=== PATIENT | male | born 1960 | race African-American/Black ===

== ENCOUNTER 2019-08-11 19:19 | Inpatient (IN) | payer BC, OTHER ==
[~2019-08-11 19:19] MED LIST: LORazepam 0.5 MG TABLET PO PRN
[2019-08-11 20:22] VITALS: BMI 28.5
--- NOTE | 2019-08-11 21:19 | HP ---
CIWA Score Nausea/Vomitin Muscle Tremors: 1-None Visible, but [place] Anxiety: 0-No Anxiety, at Ease Agitation: 0-Normal Activity Paroxysmal Sweats: 3 Orientation: 2-Disoriented Date<2 days Tacttile Disturbances: 0-None Auditory Disturbances: 0-None Visual Disturbances: 0-None Headache: 2-Mild CIWA-Ar Total Score: 13 - Admission Criteria OASAS Guidelines: Admission for Medically Managed Detox: Requires at least one of the followin. CIWA greater than 12 2. Seizures within the past 24 hours 3. Delirium tremens within the past 24 hours 4. Hallucinations within the past 24 hours 5. Acute intervention needed for co occurring medical disorder 6. Acute intervention needed for co occurring psychiatric disorder 7. Severe withdrawal that cannot be handled at a lower level of care (continued vomiting, continued diarrhea, abnormal vital signs) requiring intravenous medication and/or fluids 8. Patient presents the following: CIWA greater than 12 Admission Criteria Met: Admission criteria met Admitting History and Physical - Smoking History Smoking history: Current every day smoker Have you smoked in the past 12 months: Yes Aproximately how many cigarettes per day: 10 - Alcohol/Substance Use Hx Alcohol Use: Yes (pt reports drinking alcohol daily) Admission ROS [facility] Chief Complaint: SEEKING ALCOHOL DETOX Allergies/Adverse Reactions: Allergies Allergy/AdvReac Type Severity Reaction Status Date / Time No Known Drug Allergies Allergy Unknown Verified 08/11/19 20:12 Unclassified Drug Allergy Unknown ALLERGY TO Verified 08/11/19 20:12 NOODLES History of Present Illness: HERE FOR ALCOHOL DETOX. CLIENT IS SELF REFERRED. KNOWN TO PROGRAM. LAST HERE 6 YEARS AGO. PRESENTS TODAY WITH C/O WITHDRAWAL SX'S. HE REPORT DAILY ALCOHOL USE. LAST BEING EARLIER TODAY. 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 REPORTS HX OF SEIZURES LAST EPISODE 3 MONTHS AGO AFTER HE AFTER TO REFRAIN FROM USING ALCOHOL. REPORTS LONGEST CLEAN TIME 1 YEAR. DENIES ANY CLEAN TIME THIS PAST YEAR. HOMELESS, SSD, DENIES LEGALS. Exam Limitations: No Limitations - Ebola screening Have you traveled outside of the country in the last 21 days: No (N) Have you had contact with anyone from an Ebola affected area: No Do you have a fever: No - Review of Systems Constitutional: Chills, Loss of Appetite, Changes in sleep EENT: reports: Other (RINORRHEA) Respiratory: reports: No Symptoms reported Cardiac: reports: No Symptoms Reported GI: reports: Poor Appetite, Poor Fluid Intake, Vomiting : reports: No Symptoms Reported Musculoskeletal: reports: Joint Pain (CHRONIC) Integumentary: reports: No Symptoms Reported Neuro: reports: Headache, Seizure, Tremors (FELT) Endocrine: reports: No Symptoms Reported Hematology: reports: No Symptoms Reported Psychiatric: reports: Orientated x3, Agitated (IRRITABLE), Depressed (DENIES SI) Other Systems: Reviewed and Negative Patient History - Patient Medical History Hx Anemia: No Hx Asthma: Yes Hx Chronic Obstructive Pulmonary Disease (COPD): No Hx Cancer: No Hx Cardiac Disorders: No Hx Congestive Heart Failure: No Hx Hypertension: Yes (on medication of HTN) Hx Hypercholesterolemia: No Hx Pacemaker: No HX Cerebrovascular Accident: No Hx Seizures: No Hx Dementia: No Hx Diabetes: No Hx Gastrointestinal Disorders: No Hx Liver Disease: No Hx Genitourinary Disorders: No Hx Sexually Transmitted Disorders: Yes (Patient reported treated for syphillis in the past.) Hx Renal Disease (ESRD): No Hx Thyroid Disease: No Hx Human Immunodeficiency Virus (HIV): No (05/04- [id number] NEGATIVE) Hx Hepatitis C: No Hx Depression: No Hx Suicide Attempt: No Hx Bipolar Disorder: Yes Hx Schizophrenia: No Other Medical History: DENIES - Patient Surgical History Past Surgical History: No Hx Neurologic Surgery: No Hx Cataract Extraction: No Hx Cardiac Surgery: No Hx Lung Surgery: No Hx Breast Surgery: No Hx Breast Biopsy: No Hx Abdominal Surgery: No Hx Appendectomy: No Hx Cholecystectomy: No Hx Genitourinary Surgery: No Hx Section: No Hx Orthopedic Surgery: No Other Surgical History: UMBILICAL HERNIA REPAIR 2013 Anesthesia Reaction: No - PPD History Previous Implant?: Yes Documented Results: Negative w/proof (client now reports hx/o TB exposure since last testing and was tx'ed x 6 months does not recall when he converted) Implanted On Prior [facility] Admission?: Yes Date: 07/16/13 Results: 0 mm PPD to be Administered?: No - Smoking Cessation Smoking history: Current every day smoker Have you smoked in the past 12 months: Yes Aproximately how many cigarettes per day: 10 Cigars Per Day: 0 Hx Chewing Tobacco Use: No Initiated information on smoking cessation: Yes 'Breaking Loose' booklet given: 08/11/19 - Substance & Tx. History Hx Alcohol Use: Yes Hx Substance Use: Yes Substance Use Type: Alcohol, Cocaine, Marijuana Hx Substance Use Treatment: Yes ([facility]) - Substances abused Alcohol Substance route: Oral Frequency: Daily Amount used: 3 tall cans of beers/ crazy stallion/ 1 pint of Triston /vodka. Age of first use: 17 Date of last use: 08/10/19 Crack Substance route: Smoking Frequency: 3-6 times per week Amount used: 100 to 200 dollars Age of first use: 35 Date of last use: 08/11/19 Admission Physical Exam [facility] - Vital Signs Vital Signs: Vital Signs - 24 hr 08/11/19 20:10 Temperature 98.0 F Pulse Rate 76 Respiratory 20 Rate Blood Pressure 121/78 - Physical General Appearance: Yes: Mild Distress, Tremorous (felt), Anxious HEENTM: Yes: EOMI, Normocephalic, Normal Voice, CHUY, Pharynx Normal Respiratory: Yes: Chest Non-Tender, Lungs Clear, Normal Breath Sounds, No Respiratory Distress, No Accessory Muscle Use Neck: Yes: No masses,lesions,Nodules, Supple, Trachea in good position Breast: Yes: Breasts Symetrical Cardiology: Yes: Regular Rhythm, Regular Rate, S1, S2 Abdominal: Yes: Normal Bowel Sounds, Non Tender, Soft Genitourinary: Yes: Within Normal Limits Back: Yes: Normal Inspection Musculoskeletal: Yes: full range of Motion, Gait Steady Extremities: Yes: Normal Capillary Refill, Normal Range of Motion, Non-Tender, Tremors (felt) Neurological: Yes: Fully Oriented, Alert, Motor Strength 5/5, Depressed Affect ( denies si) Integumentary: Yes: Other (cool + pilorection) Lymphatic: Yes: Within Normal Limits - Diagnostic (1) Alcohol dependence with withdrawal, uncomplicated Current Visit: Yes Status: Acute (2) Cocaine dependence, uncomplicated Current Visit: Yes Status: Acute (3) Cannabis dependence, uncomplicated Current Visit: Yes Status: Acute (4) Nicotine dependence Current Visit: Yes Status: Acute (5) Depressed affect Current Visit: Yes Status: Acute (6) Asthma Current Visit: No Status: Active (7) Essential hypertension Current Visit: No Status: Active (8) History of tuberculosis exposure Current Visit: Yes Status: Resolved Cleared for Admission [facility] - Detox or Rehab S Level of Care: Medically Managed (ATIVAN) Claeared for Rehab Admission: No Breathalyzer - Breathalyzer Breathalyzer: 0 Urine Drug Screen - Test Device Lot number: [id number] Expiration date: 03/22/21 - Control Is test valid?: Yes - Results Drug screen NEGATIVE: No Urine drug screen results: THC-Marijuana, PASHA-Cocaine Inpatient Rehab Admission - Rehab Decision to Admit Inpatient rehab admission?: No
[2019-08-11] MEDS ORDERED: P-EPHED 60MG/TRIPROLIDI 2.5MG TABLET PO PRN (21:26)
[2019-08-11] MEDS ORDERED: MAGNESIUM HYDROX 2400MG/30ML ORAL SUSPENSION 30 ML CUP PO PRN (21:26)
[2019-08-11] MEDS ORDERED: hydrOXYzine PAMOATE 25 MG CAPSULE (FP) PO PRN (21:26)
[2019-08-11] MEDS ORDERED: ALBUTEROL SO4 0.083% IH SOL 2.5 MG/3 ML VIAL.NEB. NEB PRN (21:26)
[2019-08-11] MEDS ORDERED: MENTHOL/PHENOL 1 EACH UD MM PRN (21:26)
[2019-08-11] MEDS ORDERED: NICOTINE POLACRILEX 2 MG GUM BUC PRN (21:26)
[2019-08-11] MEDS ORDERED: guaiFENesin 200 MG/10 ML 10 ML UNIT-DOSE CUPS PO PRN (21:26)
[2019-08-11] MEDS ORDERED: IBUPROFEN 400 MG TABLET (FP) PO PRN (21:26)
[2019-08-11] MEDS ORDERED: BISMUTH SUBSALICYLATE 524 MG/30 ML UD PO PRN (21:26)
[2019-08-11] MEDS ORDERED: MAG HYDROX/AL HYDROX/SIMETH 30 ML UNIT-DOSE CUP PO PRN (21:26)
[2019-08-11] MEDS ORDERED: ONDANSETRON *ODT* 4 MG TABLET SL PRN (21:26)
[2019-08-11] MEDS ORDERED: LORazepam 1 MG TABLET PO PRN (21:26)
[2019-08-11] MEDS ORDERED: METHOCARBAMOL 500 MG TABLET PO PRN (21:26)
[2019-08-11] MEDS ORDERED: DICYCLOMINE HCL 10 MG CAPSULE PO PRN (21:26)
[2019-08-11] MEDS ORDERED: ACETAMINOPHEN 325 MG TABLET (FP) PO PRN ×2 (21:26)
[2019-08-11] MEDS ORDERED: MAGNESIUM CITRATE 300 ML BOTTLE PO PRN (21:26)
[2019-08-11] MEDS: THIAMINE HCL 100 MG TABLET (FP) PO SCH (22:00)
[2019-08-11] MEDS: LORazepam 2 MG TABLET PO SCH (23:15)
[2019-08-11] MEDS: MELATONIN 5 MG TABLETS PO PRN (23:16)
[2019-08-12] MEDS: LORazepam 2 MG TABLET PO SCH ×4 (07:56→22:44)
[2019-08-12] MEDS: amLODIPine BESYLATE 10 MG TABLET (FP) PO SCH (10:16)
[2019-08-12] MEDS: PRENATAL VITAMINS W/ FOLIC ACID TABLET (FP) PO SCH (10:16)
[2019-08-12] MEDS: NICOTINE 14 MG/24 HOURS TOPICAL PATCH TD SCH (10:16)
[2019-08-12 10:31] LABS: HEMATOCRIT 38.9 % (35.4-49); HEMOGLOBIN 12.6 GM/dL (11.7-16.9); MCH 30.2 pg (25.7-33.7); MCHC 32.3 g/dl (32.0-35.9); MEAN CELL VOLUME 93.4 fl (80-96); MEAN PLT VOLUME 9.3 fl (7.5-11.1); PLATELET COUNT 234 K/MM3 (134-434); RBC 4.16 M/mm3 (4.00-5.60); RDW 14.9 % (11.9-15.9); WHITE BLOOD COUNT 4.8 K/mm3 (4.0-10.0)
--- NOTE | 2019-08-12 10:43 | EKG ---
Test Reason : Blood Pressure : / mmHG Vent. Rate : 069 BPM Atrial Rate : 069 BPM P-R Int : 134 ms QRS Dur : 106 ms QT Int : 430 ms P-R-T Axes : 059 -38 -29 degrees QTc Int : 460 ms NORMAL SINUS RHYTHM LEFT AXIS DEVIATION NONSPECIFIC T WAVE ABNORMALITY PROLONGED QT ABNORMAL ECG WHEN COMPARED WITH ECG OF 02-JAN-2012 13:06, QRS DURATION HAS INCREASED INVERTED T WAVES HAVE REPLACED NONSPECIFIC T WAVE ABNORMALITY IN INFERIOR LEADS Confirmed by FINESSE FLETCHER MD ([id number]) on 08/12/2019 10:42:59 AM Referred By: KATE JI Confirmed By:FINESSE FLETCHER MD
[2019-08-12 10:50] LABS: ALBUMIN 3.1 g/dl (3.4-5.0); BILIRUBIN,TOTAL 0.3 mg/dL (0.2-1); BLOOD UREA NITROGEN 19.1 mg/dL (7-18); CALCIUM 8.4 mg/dL (8.5-10.1); CREATININE 1.2 mg/dL (0.55-1.3); TOT PROT 5.8 g/dl (6.4-8.2)
--- NOTE | 2019-08-12 12:02 | DS ---
[facility] Detox Discharge Summary Admission Date: 08/11/19 - History Present History: Alcohol Dependence, Opioid Dependence Pertinent Past History: Pt here for alcohol detox. - Physical Exam Results Vital Signs: Vital Signs Temperature 97.5 F L 08/12/19 09:52 Pulse Rate 53 L 08/12/19 09:52 Respiratory Rate 18 08/12/19 09:52 Blood Pressure 105/64 08/12/19 09:52 O2 Sat by Pulse Oximetry (%) - Medication Discharge Medications: Ambulatory Orders Albuterol Sulfate Inhaler - [Ventolin HFA Inhaler -] 2 inh IH Q4H PRN #1 inh 11/03 Amlodipine Besylate [Norvasc -] 10 mg PO DAILY #30 tablet 07/26/13 Divalproex [Depakote -] 500 mg PO BID 08/11/19
--- NOTE | 2019-08-12 12:11 | PN ---
[facility] CIWA - CIWA Score Nausea/Vomitin Muscle Tremors: 3 Anxiety: 3 Agitation: 3 Paroxysmal Sweats: 3 Orientation: 0-Oriented Tacttile Disturbances: 0-None Auditory Disturbances: 0-None Visual Disturbances: 0-None Headache: 1-Very Mild CIWA-Ar Total Score: 15 [facility] Progress Note (SOAP) Subjective: pt here for alcohol detox. Says feeling OK O: Vital Signs - 24 hr 08/11/19 08/11/19 08/12/19 20:10 23:51 00:31 Temperature 98.0 F 96.5 F L Pulse Rate 76 83 Respiratory 20 18 18 Rate Blood Pressure 121/78 115/83 08/12/19 08/12/19 08/12/19 03:31 06:37 09:52 Temperature 97.7 F 97.5 F L Pulse Rate 51 L 53 L Respiratory 18 18 18 Rate Blood Pressure 104/59 L 105/64 Laboratory Tests 08/12/19 08/12/19 08:00 08:00 WBC 4.8 RBC 4.16 Hgb 12.6 Hct 38.9 MCV 93.4 MCH 30.2 MCHC 32.3 RDW 14.9 Plt Count 234 MPV 9.3 Sodium 142 Potassium 4.0 Chloride 107 Carbon Dioxide 29 Anion Gap 6 L BUN 19.1 H Creatinine 1.2 Est GFR (CKD-EPI)AfAm 76.25 Est GFR (CKD-EPI)NonAf 65.79 Random Glucose 77 Calcium 8.4 L Total Bilirubin 0.3 AST 29 ALT 20 Alkaline Phosphatase 66 Total Protein 5.8 L Albumin 3.1 L a/p: control librium detox- pt doing well
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
[2019-08-12] MEDS: THIAMINE HCL 100 MG TABLET (FP) PO SCH (22:44)
[2019-08-12] MEDS: DIVALPROEX SODIUM 500 MG TABLET E.C. PO SCH (22:44)
[2019-08-13] MEDS: LORazepam 1 MG TABLET PO SCH ×4 (06:16→23:13)
[2019-08-13] MEDS: DIVALPROEX SODIUM 500 MG TABLET E.C. PO SCH ×2 (10:42→23:14)
[2019-08-13] MEDS: amLODIPine BESYLATE 10 MG TABLET (FP) PO SCH (10:42)
[2019-08-13] MEDS: PRENATAL VITAMINS W/ FOLIC ACID TABLET (FP) PO SCH (10:43)
[2019-08-13] MEDS: NICOTINE 14 MG/24 HOURS TOPICAL PATCH TD SCH (10:44)
--- NOTE | 2019-08-13 11:06 | PN ---
S CIWA - CIWA Score Nausea/Vomitin-No Nausea/No Vomiting Muscle Tremors: 2 Anxiety: 3 Agitation: 0-Normal Activity Paroxysmal Sweats: 3 Orientation: 0-Oriented Tacttile Disturbances: 0-None Auditory Disturbances: 0-None Visual Disturbances: 0-None Headache: 2-Mild CIWA-Ar Total Score: 10 S Progress Note (SOAP) Subjective: c/o sweats, anxiety, and headache. Objective: 08/13/19 11:04 Vital Signs 08/13/19 08/13/19 08/13/19 03:30 06:24 06:30 Temperature 97.6 F Pulse Rate 64 Respiratory 18 18 18 Rate Blood Pressure 116/72 08/13/19 09:20 Temperature 97.4 F L Pulse Rate 67 Respiratory 18 Rate Blood Pressure 135/79 Lab Results WBC 4.8 K/mm3 (4.0-10.0) 08/12/19 08:00 RBC 4.16 M/mm3 (4.00-5.60) 08/12/19 08:00 Hgb 12.6 GM/dL (11.7-16.9) 08/12/19 08:00 Hct 38.9 % (35.4-49) 08/12/19 08:00 MCV 93.4 fl (80-96) 08/12/19 08:00 MCHC 32.3 g/dl (32.0-35.9) 08/12/19 08:00 RDW 14.9 % (11.9-15.9) 08/12/19 08:00 Plt Count 234 K/MM3 (134-434) 08/12/19 08:00 Sodium 142 mmol/L (136-145) 08/12/19 08:00 Potassium 4.0 mmol/L (3.5-5.1) 08/12/19 08:00 Chloride 107 mmol/L (98-107) 08/12/19 08:00 Carbon Dioxide 29 mmol/L (21-32) 08/12/19 08:00 Anion Gap 6 MMOL/L (8-16) L 08/12/19 08:00 BUN 19.1 mg/dL (7-18) H 08/12/19 08:00 Creatinine 1.2 mg/dL (0.55-1.3) 08/12/19 08:00 Random Glucose 77 mg/dL (74-106) 08/12/19 08:00 Calcium 8.4 mg/dL (8.5-10.1) L 08/12/19 08:00 Labs noted. Assessment: 08/13/19 11:05 AOX3, in no respiratory distress. Full ROM, ambulating in the unit. Withdrawal symptoms. Plan: continue detox.
--- NOTE | 2019-08-13 14:38 | EKG ---
Test Reason : Blood Pressure : / mmHG Vent. Rate : 060 BPM Atrial Rate : 060 BPM P-R Int : 134 ms QRS Dur : 110 ms QT Int : 486 ms P-R-T Axes : 063 -34 -38 degrees QTc Int : 486 ms NORMAL SINUS RHYTHM LEFT AXIS DEVIATION POSSIBLE LATERAL INFARCT , AGE UNDETERMINED T WAVE ABNORMALITY, CONSIDER INFERIOR ISCHEMIA T WAVE ABNORMALITY, CONSIDER ANTERIOR ISCHEMIA ABNORMAL ECG WHEN COMPARED WITH ECG OF 02-JAN-2012 13:06, T WAVE ABNORMALITIES NOW PRESENT Confirmed by ROCK TOLEDO MD ([id number]) on 08/13/2019 2:37:55 PM Referred By: Confirmed By:ROCK TOLEDO MD
[2019-08-13] MEDS: MELATONIN 5 MG TABLETS PO PRN (23:14)
[2019-08-13] MEDS: THIAMINE HCL 100 MG TABLET (FP) PO SCH (23:14)
[2019-08-14] MEDS: LORazepam 0.5 MG TABLET PO SCH ×4 (05:43→22:28)
[2019-08-14] MEDS: amLODIPine BESYLATE 10 MG TABLET (FP) PO SCH (10:50)
[2019-08-14] MEDS: PRENATAL VITAMINS W/ FOLIC ACID TABLET (FP) PO SCH (10:50)
[2019-08-14] MEDS: DIVALPROEX SODIUM 500 MG TABLET E.C. PO SCH ×2 (10:50→22:28)
[2019-08-14] MEDS: NICOTINE 14 MG/24 HOURS TOPICAL PATCH TD SCH (10:51)
--- NOTE | 2019-08-14 11:00 | PN ---
[facility] CIWA - CIWA Score Nausea/Vomitin-No Nausea/No Vomiting Muscle Tremors: 1-None Visible, but [place] Anxiety: 2 Agitation: 1-Slight > Activity Paroxysmal Sweats: 1-Minimal [place] Moist Orientation: 0-Oriented Tacttile Disturbances: 0-None Auditory Disturbances: 0-None Visual Disturbances: 0-None Headache: 0-None Present CIWA-Ar Total Score: 5 [facility] Progress Note (SOAP) Subjective: 59 years old male admitted on 08/11/19 for alcohol withdrawal sx management treating with ativan detox regimen feeling better today resting on bed comfortably encourage the patient to attend groups and meetings Objective: 08/14/19 11:00 Vital Signs Temperature 96.6 F L 08/14/19 09:09 Pulse Rate 66 08/14/19 09:09 Respiratory Rate 18 08/14/19 09:09 Blood Pressure 132/89 08/14/19 09:09 O2 Sat by Pulse Oximetry (%) Laboratory Last Values WBC 4.8 K/mm3 (4.0-10.0) 08/12/19 08:00 RBC 4.16 M/mm3 (4.00-5.60) 08/12/19 08:00 Hgb 12.6 GM/dL (11.7-16.9) 08/12/19 08:00 Hct 38.9 % (35.4-49) 08/12/19 08:00 MCV 93.4 fl (80-96) 08/12/19 08:00 MCH 30.2 pg (25.7-33.7) 08/12/19 08:00 MCHC 32.3 g/dl (32.0-35.9) 08/12/19 08:00 RDW 14.9 % (11.9-15.9) 08/12/19 08:00 Plt Count 234 K/MM3 (134-434) 08/12/19 08:00 MPV 9.3 fl (7.5-11.1) 08/12/19 08:00 Sodium 142 mmol/L (136-145) 08/12/19 08:00 Potassium 4.0 mmol/L (3.5-5.1) 08/12/19 08:00 Chloride 107 mmol/L (98-107) 08/12/19 08:00 Carbon Dioxide 29 mmol/L (21-32) 08/12/19 08:00 Anion Gap 6 MMOL/L (8-16) L 08/12/19 08:00 BUN 19.1 mg/dL (7-18) H 08/12/19 08:00 Creatinine 1.2 mg/dL (0.55-1.3) 08/12/19 08:00 Est GFR (CKD-EPI)AfAm 76.25 08/12/19 08:00 Est GFR (CKD-EPI)NonAf 65.79 08/12/19 08:00 Random Glucose 77 mg/dL (74-106) 08/12/19 08:00 Calcium 8.4 mg/dL (8.5-10.1) L 08/12/19 08:00 Total Bilirubin 0.3 mg/dL (0.2-1) 08/12/19 08:00 AST 29 U/L (15-37) 08/12/19 08:00 ALT 20 U/L (13-61) 08/12/19 08:00 Alkaline Phosphatase 66 U/L (45-117) 08/12/19 08:00 Total Protein 5.8 g/dl (6.4-8.2) L 08/12/19 08:00 Albumin 3.1 g/dl (3.4-5.0) L 08/12/19 08:00 Valproic Acid 4.2 ug/mL (50-100) L 08/13/19 05:50 RPR Titer Nonreactive (NONREACTIVE) 08/12/19 08:00 lab noted Assessment: 08/14/19 11:00 alcohol withdrawal Plan: ativan regimen
[2019-08-14] MEDS: MELATONIN 5 MG TABLETS PO PRN (22:28)
[2019-08-14] MEDS: THIAMINE HCL 100 MG TABLET (FP) PO SCH (22:28)
[2019-08-15] MEDS ORDERED: LORazepam 0.5 MG TABLET PO ONE (05:00)
[2019-08-15 09:26] VITALS: BP 131/87; PULSE 98; TEMP 97
[2019-08-15] MEDS: DIVALPROEX SODIUM 500 MG TABLET E.C. PO SCH (09:34)
[2019-08-15] MEDS: PRENATAL VITAMINS W/ FOLIC ACID TABLET (FP) PO SCH (09:34)
[2019-08-15] MEDS: amLODIPine BESYLATE 10 MG TABLET (FP) PO SCH (09:34)
[2019-08-15] MEDS: NICOTINE 14 MG/24 HOURS TOPICAL PATCH TD SCH (09:35)
--- NOTE | 2019-08-15 12:37 | DS ---
[facility] Detox Discharge Summary Admission Date: 08/11/19 Discharge Date: 08/15/19 - History Present History: Alcohol Dependence Additional Comments: 59 years old male admitted on 08/11/19 for alcohol withdrawal sx management treated with ativan detox regimen patient tolerated well alert oriented x 3 cardiac s1s2 regular rate rhythm respiratory clear lung bilaterally on auscultation skin warm and dry - Physical Exam Results Vital Signs: Vital Signs Temperature 97.0 F L 08/15/19 09:25 Pulse Rate 98 H 08/15/19 09:25 Respiratory Rate 20 08/15/19 09:25 Blood Pressure 131/87 08/15/19 09:25 O2 Sat by Pulse Oximetry (%) Pertinent Admission Physical Exam Findings: alcohol withdrawal x Laboratory Last Values WBC 4.8 K/mm3 (4.0-10.0) 08/12/19 08:00 RBC 4.16 M/mm3 (4.00-5.60) 08/12/19 08:00 Hgb 12.6 GM/dL (11.7-16.9) 08/12/19 08:00 Hct 38.9 % (35.4-49) 08/12/19 08:00 MCV 93.4 fl (80-96) 08/12/19 08:00 MCH 30.2 pg (25.7-33.7) 08/12/19 08:00 MCHC 32.3 g/dl (32.0-35.9) 08/12/19 08:00 RDW 14.9 % (11.9-15.9) 08/12/19 08:00 Plt Count 234 K/MM3 (134-434) 08/12/19 08:00 MPV 9.3 fl (7.5-11.1) 08/12/19 08:00 Sodium 142 mmol/L (136-145) 08/12/19 08:00 Potassium 4.0 mmol/L (3.5-5.1) 08/12/19 08:00 Chloride 107 mmol/L (98-107) 08/12/19 08:00 Carbon Dioxide 29 mmol/L (21-32) 08/12/19 08:00 Anion Gap 6 MMOL/L (8-16) L 08/12/19 08:00 BUN 19.1 mg/dL (7-18) H 08/12/19 08:00 Creatinine 1.2 mg/dL (0.55-1.3) 08/12/19 08:00 Est GFR (CKD-EPI)AfAm 76.25 08/12/19 08:00 Est GFR (CKD-EPI)NonAf 65.79 08/12/19 08:00 Random Glucose 77 mg/dL (74-106) 08/12/19 08:00 Calcium 8.4 mg/dL (8.5-10.1) L 08/12/19 08:00 Total Bilirubin 0.3 mg/dL (0.2-1) 08/12/19 08:00 AST 29 U/L (15-37) 08/12/19 08:00 ALT 20 U/L (13-61) 08/12/19 08:00 Alkaline Phosphatase 66 U/L (45-117) 08/12/19 08:00 Total Protein 5.8 g/dl (6.4-8.2) L 08/12/19 08:00 Albumin 3.1 g/dl (3.4-5.0) L 08/12/19 08:00 Valproic Acid 4.2 ug/mL (50-100) L 08/13/19 05:50 RPR Titer Nonreactive (NONREACTIVE) 08/12/19 08:00 lab noted - Treatment Hospital Course: Detox Protocol Followed, Detoxed Safely, Responded well, Discharged Condition Good, Rehab Referral Accepted Patient [facility] - Medication Discharge Medications: Ambulatory Orders Albuterol Sulfate Inhaler - [Ventolin HFA Inhaler -] 2 inh IH Q4H PRN #1 inh 11/03 Amlodipine Besylate [Norvasc -] 10 mg PO DAILY #30 tablet 07/26/13 Divalproex [Depakote -] 500 mg PO BID 08/11/19 - Diagnosis (1) Asthma Status: Chronic (2) Essential hypertension Status: Chronic (3) Alcohol dependence with withdrawal, uncomplicated Status: Acute (4) Nicotine dependence Status: Acute Qualifiers: Nicotine product type: cigarettes Substance use status: in withdrawal Qualified Code(s): F17.213 - Nicotine dependence, cigarettes, with withdrawal (5) Substance induced mood disorder Status: Suspected - AMA Did Patient Leave Against Medical Advice: No CIWA Score - CIWA Score Nausea/Vomitin-No Nausea/No Vomiting Muscle Tremors: 1-None Visible, but [place] Anxiety: 1-Mildly Anxious Agitation: 0-Normal Activity Paroxysmal Sweats: No Perspiration Orientation: 0-Oriented Tacttile Disturbances: 0-None Auditory Disturbances: 0-None Visual Disturbances: 0-None Headache: 0-None Present CIWA-Ar Total Score: 2
== END 2019-08-15 11:00 | disposition other institution (70) | DRG 897 ==
LOC: YASAS 19:19 → Y3N 21:52
PROVIDERS: ADMIT Allergy & Immunology; ATTEND Allergy & Immunology
PROC: HZ2ZZZZ Detoxification Services for Substance Abuse Treatment (ICD-10-PCS; principal; 2019-08-11)
DX: F10.230 Alcohol dependence with withdrawal, uncomplicated (principal); F14.20 Cocaine dependence, uncomplicated; F12.20 Cannabis dependence, uncomplicated; F17.213 Nicotine dependence, cigarettes, with withdrawal; F19.24 Other psychoactive substance dependence with psychoactive substance-induced mood disorder; F32.9 Major depressive disorder, single episode, unspecified; I10 Essential (primary) hypertension; J45.909 Unspecified asthma, uncomplicated; Z91.018 Allergy to other foods; Z62.810 Personal history of physical and sexual abuse in childhood; Z87.438 Personal history of other diseases of male genital organs; Z86.11 Personal history of tuberculosis; Z91.19 Patient's noncompliance with other medical treatment and regimen; Z59.0 Homelessness
CPT/HCPCS: 36415; 71046-TC-FY; 80053; 80164; 85027; 86593; 93005; 93010

== ENCOUNTER 2019-08-15 11:06 | Inpatient (IN) | payer BC, OTHER ==
[2019-08-15] MEDS ORDERED: guaiFENesin 200 MG/10 ML 10 ML UNIT-DOSE CUPS PO PRN (12:43)
[2019-08-15] MEDS ORDERED: MAGNESIUM CITRATE 300 ML BOTTLE PO PRN (12:43)
[2019-08-15] MEDS ORDERED: IBUPROFEN 400 MG TABLET (FP) PO PRN (12:43)
[2019-08-15] MEDS ORDERED: P-EPHED 60MG/TRIPROLIDI 2.5MG TABLET PO PRN (12:43)
[2019-08-15] MEDS ORDERED: ACETAMINOPHEN 325 MG TABLET (FP) PO PRN (12:43)
[2019-08-15] MEDS ORDERED: MAG HYDROX/AL HYDROX/SIMETH 30 ML UNIT-DOSE CUP PO PRN (12:43)
[2019-08-15] MEDS ORDERED: MENTHOL/PHENOL 1 EACH UD MM PRN (12:43)
[2019-08-15] MEDS ORDERED: LOPERAMIDE HCL 2 MG CAPSULE PO PRN (12:43)
[2019-08-15] MEDS ORDERED: MAGNESIUM HYDROX 2400MG/30ML ORAL SUSPENSION 30 ML CUP PO PRN (12:43)
[2019-08-15] MEDS ORDERED: NICOTINE POLACRILEX 2 MG GUM BUC PRN (12:43)
--- NOTE | 2019-08-15 12:43 | HP ---
[facility] Rehab Assess/Revision - Admission History Admitted to Rehab from: [facility] Date of Admission to Rehab: 08/15/19 - Vital signs Vital Signs: Vital Signs Period Temp Pulse Resp BP Sys/Denise Pulse Ox Last 24 Hr 97.9 F 86 18 117/91 - Findings Detox History & Physical reviewed: Yes Concur with findings: Yes Comments/Additional Findings: transferred from detox to rehab admission as per protocol Inpatient Rehab Admission - Rehab Decision to Admit Inpatient rehab admission?: Yes - Initial Determination Are CD services needed?: Yes Free of communicable disease: Yes Not in need of hospitalization: Yes - Rehab Admission Criteria Previous failed treatment: Yes Poor recovery environment: Yes Comorbidities: Yes Lacks judgement: Yes Patient is meeting Inpatient Rehab admission criteria:: Yes
[2019-08-15] MEDS ORDERED: ALBUTEROL SO4 8 GM HFA INHALER IH PRN (12:45)
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
[2019-08-15] MEDS: COLLOIDAL OATMEAL 1 BAR EACH TP PRN (18:17)
[2019-08-15] MEDS: MELATONIN 5 MG TABLETS PO PRN (21:11)
[2019-08-15] MEDS: THIAMINE HCL 100 MG TABLET (FP) PO SCH (21:11)
[2019-08-15] MEDS: DIVALPROEX SODIUM 500 MG TABLET E.C. PO SCH (21:12)
[2019-08-16] MEDS: amLODIPine BESYLATE 10 MG TABLET (FP) PO SCH (09:26)
[2019-08-16] MEDS: PRENATAL VITAMINS W/ FOLIC ACID TABLET (FP) PO SCH (09:26)
[2019-08-16] MEDS: DIVALPROEX SODIUM 500 MG TABLET E.C. PO SCH ×2 (09:26→21:02)
[2019-08-16] MEDS: NICOTINE 14 MG/24 HOURS TOPICAL PATCH TD SCH (09:27)
[2019-08-16] MEDS: THIAMINE HCL 100 MG TABLET (FP) PO SCH (21:02)
[2019-08-16] MEDS: MELATONIN 5 MG TABLETS PO PRN (21:02)
[2019-08-17] MEDS: amLODIPine BESYLATE 10 MG TABLET (FP) PO SCH (09:56)
[2019-08-17] MEDS: DIVALPROEX SODIUM 500 MG TABLET E.C. PO SCH ×2 (09:56→21:24)
[2019-08-17] MEDS: NICOTINE 14 MG/24 HOURS TOPICAL PATCH TD SCH (09:56)
[2019-08-17] MEDS: PRENATAL VITAMINS W/ FOLIC ACID TABLET (FP) PO SCH (09:56)
[2019-08-17] MEDS: MELATONIN 5 MG TABLETS PO PRN (21:24)
[2019-08-17] MEDS: THIAMINE HCL 100 MG TABLET (FP) PO SCH (21:24)
[2019-08-18] MEDS: amLODIPine BESYLATE 10 MG TABLET (FP) PO SCH (09:28)
[2019-08-18] MEDS: DIVALPROEX SODIUM 500 MG TABLET E.C. PO SCH ×2 (09:28→21:28)
[2019-08-18] MEDS: PRENATAL VITAMINS W/ FOLIC ACID TABLET (FP) PO SCH (09:28)
[2019-08-18] MEDS: NICOTINE 14 MG/24 HOURS TOPICAL PATCH TD SCH (09:28)
[2019-08-18] MEDS: THIAMINE HCL 100 MG TABLET (FP) PO SCH (21:28)
[2019-08-18] MEDS: MELATONIN 5 MG TABLETS PO PRN (21:28)
[2019-08-19] MEDS: amLODIPine BESYLATE 10 MG TABLET (FP) PO SCH (10:04)
[2019-08-19] MEDS: PRENATAL VITAMINS W/ FOLIC ACID TABLET (FP) PO SCH (10:04)
[2019-08-19] MEDS: DIVALPROEX SODIUM 500 MG TABLET E.C. PO SCH ×2 (10:04→21:26)
[2019-08-19] MEDS: NICOTINE 14 MG/24 HOURS TOPICAL PATCH TD SCH (10:05)
[2019-08-19] MEDS: THIAMINE HCL 100 MG TABLET (FP) PO SCH (21:26)
[2019-08-20] MEDS: NICOTINE 14 MG/24 HOURS TOPICAL PATCH TD SCH (09:39)
[2019-08-20] MEDS: amLODIPine BESYLATE 10 MG TABLET (FP) PO SCH (09:39)
[2019-08-20] MEDS: DIVALPROEX SODIUM 500 MG TABLET E.C. PO SCH ×2 (09:40→21:06)
[2019-08-20] MEDS: PRENATAL VITAMINS W/ FOLIC ACID TABLET (FP) PO SCH (09:40)
[2019-08-20] MEDS: MELATONIN 5 MG TABLETS PO PRN (21:06)
[2019-08-20] MEDS: THIAMINE HCL 100 MG TABLET (FP) PO SCH (21:06)
[2019-08-21] MEDS: PRENATAL VITAMINS W/ FOLIC ACID TABLET (FP) PO SCH (09:30)
[2019-08-21] MEDS: amLODIPine BESYLATE 10 MG TABLET (FP) PO SCH (09:30)
[2019-08-21] MEDS: NICOTINE 14 MG/24 HOURS TOPICAL PATCH TD SCH (09:30)
[2019-08-21] MEDS: DIVALPROEX SODIUM 500 MG TABLET E.C. PO SCH ×2 (09:30→21:41)
[2019-08-21] MEDS: MELATONIN 5 MG TABLETS PO PRN (21:41)
[2019-08-21] MEDS: THIAMINE HCL 100 MG TABLET (FP) PO SCH (21:41)
[2019-08-22] MEDS: COLLOIDAL OATMEAL 1 BAR EACH TP PRN (07:08)
[2019-08-22] MEDS: PRENATAL VITAMINS W/ FOLIC ACID TABLET (FP) PO SCH (09:33)
[2019-08-22] MEDS: amLODIPine BESYLATE 10 MG TABLET (FP) PO SCH (09:33)
[2019-08-22] MEDS: DIVALPROEX SODIUM 500 MG TABLET E.C. PO SCH ×2 (09:33→21:39)
[2019-08-22] MEDS: NICOTINE 14 MG/24 HOURS TOPICAL PATCH TD SCH (09:34)
[2019-08-22] MEDS: THIAMINE HCL 100 MG TABLET (FP) PO SCH (21:39)
[2019-08-22] MEDS: MELATONIN 5 MG TABLETS PO PRN (21:39)
[2019-08-23] MEDS: NICOTINE 14 MG/24 HOURS TOPICAL PATCH TD SCH (09:41)
[2019-08-23] MEDS: amLODIPine BESYLATE 10 MG TABLET (FP) PO SCH (09:41)
[2019-08-23] MEDS: DIVALPROEX SODIUM 500 MG TABLET E.C. PO SCH ×2 (09:41→21:32)
[2019-08-23] MEDS: PRENATAL VITAMINS W/ FOLIC ACID TABLET (FP) PO SCH (09:41)
[2019-08-23] MEDS: THIAMINE HCL 100 MG TABLET (FP) PO SCH (21:32)
[2019-08-23] MEDS: MELATONIN 5 MG TABLETS PO PRN (21:32)
[2019-08-24] MEDS: amLODIPine BESYLATE 10 MG TABLET (FP) PO SCH (09:36)
[2019-08-24] MEDS: NICOTINE 14 MG/24 HOURS TOPICAL PATCH TD SCH (09:36)
[2019-08-24] MEDS: PRENATAL VITAMINS W/ FOLIC ACID TABLET (FP) PO SCH (09:36)
[2019-08-24] MEDS: DIVALPROEX SODIUM 500 MG TABLET E.C. PO SCH ×2 (09:36→22:02)
--- NOTE | 2019-08-24 17:44 | PN ---
[facility] Progress Note Note: PATIENT ADMITTED TO REHAB FOR ETOH DEPENDENCE. LAST ADMISSION 6 YEARS AGO. HAS HX OF SEIZURES AND BINGE DRINKING. HOMELESS, SSD, DENIES LEGALS. Laboratory Tests 08/16/19 07:00 Valproic Acid 70.5 Vital Signs (72 hours) 08/22/19 08/22/19 08/22/19 00:30 03:30 06:09 Temperature 97.9 F Pulse Rate 67 Respiratory 18 18 20 Rate Blood Pressure 136/97 08/22/19 08/23/19 08/23/19 09:30 00:30 03:30 Temperature Pulse Rate 81 Respiratory 18 18 18 Rate Blood Pressure 138/74 08/23/19 08/23/19 08/24/19 06:44 09:22 00:30 Temperature 97.9 F Pulse Rate 76 86 Respiratory 18 18 Rate Blood Pressure 124/77 123/79 08/24/19 08/24/19 08/24/19 03:30 06:45 09:26 Temperature 97.8 F Pulse Rate 58 L 73 Respiratory 18 18 Rate Blood Pressure 131/92 128/85 REHAB SERVICES CONTINUED.
[2019-08-24] MEDS: THIAMINE HCL 100 MG TABLET (FP) PO SCH (22:02)
[2019-08-25 07:18] VITALS: TEMP 97.7
--- NOTE | 2019-08-25 08:34 | DS ---
[facility] Rehab Discharge Summary - [facility] Rehab Discharge Summary Admission Date: 08/15/19 Discharge Date: 08/25/19 - History Present History: Alcohol dependence, Cocaine dependence Pertinent Past History: Pt was admitted for alcohol and cocaine use disorders. Came in for detox about 2 weeks ago- completed detox then admitted to rehab. Pt has been here for about 10 days. Pt states doing well- says his stay here was good. Will f/u with MH- on [address] [facility] - [facility] [address] Use disorders- pt will go for f/u on [address]- outpt services PE- grossly nl Vital Signs - 24 hr 08/24/19 08/25/19 08/25/19 09:26 00:30 06:17 Temperature 97.7 F Pulse Rate 73 65 Respiratory 18 20 Rate Blood Pressure 128/85 125/85 Laboratory Tests 08/16/19 07:00 Valproic Acid 70.5 a/p: Use disorders- pt states will f/u with outpt program- pt does not know name and has and medical providers pt states needs only Norvasc and vitamins. Pt states will get depakote from his provider- on [address] - Discharge Physical Exam Vital Signs: Vital Signs Temperature 97.7 F 08/25/19 06:17 Pulse Rate 65 08/25/19 06:17 Respiratory Rate 20 08/25/19 06:17 Blood Pressure 125/85 08/25/19 06:17 O2 Sat by Pulse Oximetry (%) - Treatment Discharge Condition: Discharge condition good - Medication Discharge Medications: Ambulatory Orders Albuterol Sulfate Inhaler - [Ventolin HFA Inhaler -] 2 inh IH Q4H PRN #1 inh 11/03 Divalproex [Depakote -] 500 mg PO BID 08/11/19 Amlodipine Besylate [Norvasc -] 10 mg PO DAILY #30 tablet 08/25/19 Vitamins (Sjr) - 1 tab PO DAILY #30 tablet 08/25/19 Thiamine HCl [Vitamin B1 -] 100 mg PO HS #30 tablet 08/25/19 - Discharge Instructions Diet, activity, other medical instructions: Diet: Activity: Other medical instructions: - Follow-up Referral Minutes to complete discharge: 30 - AMA Did Patient Leave Against Medical Advice: No
[2019-08-25 09:48] VITALS: BP 126/85; PULSE 72
== END 2019-08-25 10:23 | disposition home or self-care (01) | DRG 895 ==
LOC: YASAS 11:06 → Y3W 11:09
PROVIDERS: ADMIT Neuromusculoskeletal Medicine & OMM; ATTEND Neuromusculoskeletal Medicine & OMM
PROC: HZ42ZZZ Group Counseling for Substance Abuse Treatment, Cognitive-Behavioral (ICD-10-PCS; principal; 2019-08-15)
DX: F14.20 Cocaine dependence, uncomplicated (principal); F17.213 Nicotine dependence, cigarettes, with withdrawal; F12.20 Cannabis dependence, uncomplicated; I10 Essential (primary) hypertension; J45.909 Unspecified asthma, uncomplicated; Z86.11 Personal history of tuberculosis; Z87.438 Personal history of other diseases of male genital organs; Z59.0 Homelessness
CPT/HCPCS: 80164

== ENCOUNTER 2023-03-30 13:50 | Inpatient (IN) | payer OTHER ==
[2023-03-30 14:28] VITALS: BMI 31.4
[2023-03-30] MEDS ORDERED: hydrOXYzine PAMOATE 25 MG CAPSULE (FP) PO PRN (19:16)
[2023-03-30] MEDS ORDERED: DICYCLOMINE HCL 10 MG CAPSULE PO PRN (19:16)
[2023-03-30] MEDS ORDERED: ACETAMINOPHEN 325 MG TABLET (FP) PO PRN (19:16)
[2023-03-30] MEDS ORDERED: NALOXONE HCL 0.4 MG/ML VIAL IM PRN (19:16)
[2023-03-30] MEDS ORDERED: NALOXONE HCL (KLOXXADO) 8 MG SPRAY NS PRN (19:16)
[2023-03-30] MEDS ORDERED: chlordiazePOXIDE HCL 25 MG CAPSULE PO PRN (19:16)
[2023-03-30] MEDS ORDERED: BISMUTH SUBSALICYLATE 524 MG/30 ML PO PRN (19:16)
[2023-03-30] MEDS ORDERED: LOPERAMIDE HCL 2 MG CAPSULE PO PRN (19:16)
[2023-03-30] MEDS ORDERED: POLYETHYLENE GLYCOL (HEALTHYLAX) 3350 17 GM PACKET PO PRN (19:16)
[2023-03-30] MEDS ORDERED: IBUPROFEN 600 MG TABLET (FP) PO PRN (19:16)
[2023-03-30] MEDS ORDERED: BENZOCAINE/MENTHOL (CHLORASEPTIC ) LOZENGE MM PRN (19:16)
[2023-03-30] MEDS ORDERED: BENZONATATE 200 MG CAPSULE PO PRN (19:16)
[2023-03-30] MEDS ORDERED: IBUPROFEN 400 MG TABLET (FP) PO PRN (19:16)
[2023-03-30] MEDS ORDERED: ONDANSETRON *ODT* 4 MG TABLET SL PRN (19:16)
[2023-03-30] MEDS ORDERED: MAG HYDROX/AL HYDROX/SIMETH 30 ML UNIT-DOSE CUP PO PRN (19:16)
[2023-03-30] MEDS ORDERED: MAGNESIUM HYDROX 2400MG/30ML ORAL SUSPENSION 30 ML CUP PO PRN (19:16)
[2023-03-30] MEDS ORDERED: guaiFENesin 600 MG TABLET.ER (FP) PO PRN (19:16)
[2023-03-30] MEDS ORDERED: ALBUTEROL SO4 HFA INHALER IH PRN (20:03)
[2023-03-30] MEDS: MELATONIN 5 MG TABLETS PO SCH (21:27)
[2023-03-30] MEDS: THIAMINE HCL 100 MG TABLET (FP) PO SCH (21:27)
[2023-03-30] MEDS: DIVALPROEX SODIUM 500 MG TABLET E.C. PO SCH (21:27)
[2023-03-30] MEDS: chlordiazePOXIDE HCL 25 MG CAPSULE PO SCH (22:39)
[2023-03-31] MEDS: chlordiazePOXIDE HCL 25 MG CAPSULE PO SCH ×4 (05:05→22:50)
[2023-03-31 10:24] LABS: HEMATOCRIT 41.6 % (35.4-49); HEMOGLOBIN 13.9 GM/dL (11.7-16.9); MCH 30.7 pg (25.7-33.7); MCHC 33.3 g/dl (32.0-35.9); MEAN CELL VOLUME 92.2 fl (80-96); MEAN PLT VOLUME 9.1 fl (7.5-11.1); PLATELET COUNT 263 10^3/uL (134-434); RBC 4.52 M/mm3 (4.00-5.60); RDW 14.2 % (11.9-15.9); WHITE BLOOD COUNT 5.6 K/mm3 (4.0-10.0)
[2023-03-31 10:28] LABS: POTASSIUM 4.1 mmol/L (3.5-5.1)
[2023-03-31 10:35] LABS: CREATININE 1.2 mg/dL (0.55-1.3)
[2023-03-31 10:37] LABS: BILIRUBIN,TOTAL 0.2 mg/dL (0.2-1); TOT PROT 6.4 g/dl (6.4-8.2)
[2023-03-31 10:38] LABS: ALBUMIN 3.4 g/dl (3.4-5.0); BLOOD UREA NITROGEN 15.5 mg/dL (7-18)
[2023-03-31] MEDS: PRENATAL VITAMINS W/ FOLIC ACID TABLET (FP) PO SCH (10:38)
[2023-03-31] MEDS: DIVALPROEX SODIUM 500 MG TABLET E.C. PO SCH ×2 (10:38→22:49)
[2023-03-31] MEDS: amLODIPine BESYLATE 10 MG TABLET (FP) PO SCH (10:39)
[2023-03-31] MEDS: THIAMINE HCL 100 MG TABLET (FP) PO SCH (22:49)
[2023-03-31] MEDS: MELATONIN 5 MG TABLETS PO SCH (22:52)
[2023-04-01] MEDS: chlordiazePOXIDE HCL 25 MG CAPSULE PO SCH ×4 (05:42→22:31)
[2023-04-01] MEDS: METHOCARBAMOL 500 MG TABLET PO PRN (10:52)
[2023-04-01] MEDS: amLODIPine BESYLATE 10 MG TABLET (FP) PO SCH (10:52)
[2023-04-01] MEDS: PRENATAL VITAMINS W/ FOLIC ACID TABLET (FP) PO SCH (10:52)
[2023-04-01] MEDS: DIVALPROEX SODIUM 500 MG TABLET E.C. PO SCH ×2 (10:52→22:31)
[2023-04-01] MEDS: THIAMINE HCL 100 MG TABLET (FP) PO SCH (22:31)
[2023-04-01] MEDS: MELATONIN 5 MG TABLETS PO SCH (22:32)
[2023-04-02] MEDS ORDERED: chlordiazePOXIDE HCL 10 MG CAPSULE PO PRN
[2023-04-02] MEDS: chlordiazePOXIDE HCL 10 MG CAPSULE PO SCH ×4 (05:27→23:38)
[2023-04-02] MEDS: PRENATAL VITAMINS W/ FOLIC ACID TABLET (FP) PO SCH (10:33)
[2023-04-02] MEDS: DIVALPROEX SODIUM 500 MG TABLET E.C. PO SCH ×2 (10:34→23:38)
[2023-04-02] MEDS: METHOCARBAMOL 500 MG TABLET PO PRN (10:34)
[2023-04-02] MEDS: amLODIPine BESYLATE 10 MG TABLET (FP) PO SCH (10:34)
[2023-04-02] MEDS: MELATONIN 5 MG TABLETS PO SCH (23:38)
[2023-04-02] MEDS: THIAMINE HCL 100 MG TABLET (FP) PO SCH (23:39)
[2023-04-03] MEDS: chlordiazePOXIDE HCL 10 MG CAPSULE PO SCH ×2 (05:26→17:53)
[2023-04-03] MEDS: PRENATAL VITAMINS W/ FOLIC ACID TABLET (FP) PO SCH (11:18)
[2023-04-03] MEDS: amLODIPine BESYLATE 10 MG TABLET (FP) PO SCH (11:18)
[2023-04-03] MEDS: DIVALPROEX SODIUM 500 MG TABLET E.C. PO SCH ×2 (11:18→22:56)
[2023-04-03] MEDS: THIAMINE HCL 100 MG TABLET (FP) PO SCH (22:56)
[2023-04-03] MEDS: METHOCARBAMOL 500 MG TABLET PO PRN (22:56)
[2023-04-03] MEDS: MELATONIN 5 MG TABLETS PO SCH (22:56)
[2023-04-04] MEDS ORDERED: chlordiazePOXIDE HCL 10 MG CAPSULE PO ONE (05:00)
[2023-04-04 09:34] VITALS: BP 146/105; PULSE 74; RESP 17; TEMP 97.8
[2023-04-04] MEDS: DIVALPROEX SODIUM 500 MG TABLET E.C. PO SCH (10:29)
[2023-04-04] MEDS: PRENATAL VITAMINS W/ FOLIC ACID TABLET (FP) PO SCH (10:29)
[2023-04-04] MEDS: amLODIPine BESYLATE 10 MG TABLET (FP) PO SCH (10:29)
== END 2023-04-04 12:33 | disposition other institution (70) | DRG 897 ==
LOC: YASAS 13:50 → Y6N 19:21
PROVIDERS: ADMIT Allergy & Immunology; ATTEND Allergy & Immunology
PROC: HZ2ZZZZ Detoxification Services for Substance Abuse Treatment (ICD-10-PCS; principal; 2023-03-30)
DX: F10.230 Alcohol dependence with withdrawal, uncomplicated (principal); F14.20 Cocaine dependence, uncomplicated; F19.282 Other psychoactive substance dependence with psychoactive substance-induced sleep disorder; F17.213 Nicotine dependence, cigarettes, with withdrawal; F31.9 Bipolar disorder, unspecified; F19.24 Other psychoactive substance dependence with psychoactive substance-induced mood disorder; I10 Essential (primary) hypertension; J45.909 Unspecified asthma, uncomplicated; M54.50 Low back pain, unspecified; G89.29 Other chronic pain; Z62.810 Personal history of physical and sexual abuse in childhood; Z86.11 Personal history of tuberculosis; Z86.19 Personal history of other infectious and parasitic diseases; Z86.69 Personal history of other diseases of the nervous system and sense organs; Z91.199 Patient's noncompliance with other medical treatment and regimen due to unspecified reason
CPT/HCPCS: 36415; 71046-TC-FY; 80053; 85027; 86780; 87635

== ENCOUNTER 2023-04-04 12:31 | Inpatient (IN) | payer OTHER ==
[2023-04-04] MEDS ORDERED: MAG HYDROX/AL HYDROX/SIMETH 30 ML UNIT-DOSE CUP PO PRN (14:49)
[2023-04-04] MEDS ORDERED: MAGNESIUM HYDROX 2400MG/30ML ORAL SUSPENSION 30 ML CUP PO PRN (14:49)
[2023-04-04] MEDS ORDERED: NICOTINE 14 MG/24 HOURS TOPICAL PATCH TD PRN (14:49)
[2023-04-04] MEDS ORDERED: METHOCARBAMOL 500 MG TABLET PO PRN (14:49)
[2023-04-04] MEDS ORDERED: IBUPROFEN 600 MG TABLET (FP) PO PRN (14:49)
[2023-04-04] MEDS ORDERED: BENZOCAINE/MENTHOL (CHLORASEPTIC ) LOZENGE MM PRN (14:49)
[2023-04-04] MEDS ORDERED: guaiFENesin 600 MG TABLET.ER (FP) PO PRN (14:49)
[2023-04-04] MEDS ORDERED: LOPERAMIDE HCL 2 MG CAPSULE PO PRN (14:49)
[2023-04-04] MEDS ORDERED: IBUPROFEN 400 MG TABLET (FP) PO PRN (14:49)
[2023-04-04] MEDS ORDERED: ACETAMINOPHEN 325 MG TABLET (FP) PO PRN (14:49)
[2023-04-04] MEDS ORDERED: BENZONATATE 200 MG CAPSULE PO PRN (14:49)
[2023-04-04] MEDS ORDERED: NALOXONE HCL (KLOXXADO) 8 MG SPRAY NS PRN (14:49)
[2023-04-04] MEDS ORDERED: POLYETHYLENE GLYCOL (HEALTHYLAX) 3350 17 GM PACKET PO PRN (14:49)
[2023-04-04] MEDS ORDERED: NALOXONE HCL 0.4 MG/ML VIAL IVPUSH PRN (14:49)
[2023-04-04] MEDS ORDERED: AMMONIUM LACTATE 12% LOTION 225 GM BOTTLE TP PRN (14:49)
[2023-04-04] MEDS ORDERED: ALBUTEROL SO4 HFA INHALER IH PRN (14:53)
[2023-04-04] MEDS: THIAMINE HCL 100 MG TABLET (FP) PO SCH (21:14)
[2023-04-04] MEDS: DIVALPROEX SODIUM 500 MG TABLET E.C. PO SCH (21:14)
[2023-04-04] MEDS: MELATONIN 5 MG TABLETS PO SCH (21:14)
[2023-04-04] MEDS ORDERED: THIAMINE HCL 100 MG TABLET (FP) PO SCH (22:00)
[2023-04-05] MEDS: hydrOXYzine PAMOATE 25 MG CAPSULE (FP) PO PRN (06:01)
[2023-04-05] MEDS: COLLOIDAL OATMEAL 1 BAR EACH TP PRN (06:02)
[2023-04-05] MEDS: DIVALPROEX SODIUM 500 MG TABLET E.C. PO SCH ×2 (10:11→21:40)
[2023-04-05] MEDS: amLODIPine BESYLATE 10 MG TABLET (FP) PO SCH (10:11)
[2023-04-05] MEDS: PRENATAL VITAMINS W/ FOLIC ACID TABLET (FP) PO SCH (10:11)
[2023-04-05] MEDS: MELATONIN 5 MG TABLETS PO SCH (21:41)
[2023-04-05] MEDS: THIAMINE HCL 100 MG TABLET (FP) PO SCH (21:41)
[2023-04-06] MEDS: hydrOXYzine PAMOATE 25 MG CAPSULE (FP) PO PRN (06:12)
[2023-04-06] MEDS: PRENATAL VITAMINS W/ FOLIC ACID TABLET (FP) PO SCH (10:21)
[2023-04-06] MEDS: DIVALPROEX SODIUM 500 MG TABLET E.C. PO SCH ×2 (10:21→21:25)
[2023-04-06] MEDS: amLODIPine BESYLATE 10 MG TABLET (FP) PO SCH (10:23)
[2023-04-06] MEDS: MELATONIN 5 MG TABLETS PO SCH (21:25)
[2023-04-06] MEDS: THIAMINE HCL 100 MG TABLET (FP) PO SCH (21:25)
[2023-04-07] MEDS: DIVALPROEX SODIUM 500 MG TABLET E.C. PO SCH ×2 (09:54→21:07)
[2023-04-07] MEDS: PRENATAL VITAMINS W/ FOLIC ACID TABLET (FP) PO SCH (09:54)
[2023-04-07] MEDS: amLODIPine BESYLATE 10 MG TABLET (FP) PO SCH (09:54)
[2023-04-07] MEDS: THIAMINE HCL 100 MG TABLET (FP) PO SCH (21:07)
[2023-04-07] MEDS: MELATONIN 5 MG TABLETS PO SCH (21:07)
[2023-04-08] MEDS: hydrOXYzine PAMOATE 25 MG CAPSULE (FP) PO PRN (06:00)
[2023-04-08] MEDS: DIVALPROEX SODIUM 500 MG TABLET E.C. PO SCH ×2 (09:40→21:24)
[2023-04-08] MEDS: PRENATAL VITAMINS W/ FOLIC ACID TABLET (FP) PO SCH (09:40)
[2023-04-08] MEDS: amLODIPine BESYLATE 10 MG TABLET (FP) PO SCH (09:40)
[2023-04-08] MEDS: THIAMINE HCL 100 MG TABLET (FP) PO SCH (21:24)
[2023-04-08] MEDS: MELATONIN 5 MG TABLETS PO SCH (21:24)
[2023-04-09] MEDS: DIVALPROEX SODIUM 500 MG TABLET E.C. PO SCH ×2 (09:56→21:18)
[2023-04-09] MEDS: amLODIPine BESYLATE 10 MG TABLET (FP) PO SCH (09:56)
[2023-04-09] MEDS: PRENATAL VITAMINS W/ FOLIC ACID TABLET (FP) PO SCH (09:56)
[2023-04-09] MEDS: COLLOIDAL OATMEAL 1 BAR EACH TP PRN (09:56)
[2023-04-09] MEDS: THIAMINE HCL 100 MG TABLET (FP) PO SCH (21:18)
[2023-04-09] MEDS: MELATONIN 5 MG TABLETS PO SCH (21:18)
[2023-04-10] MEDS: amLODIPine BESYLATE 10 MG TABLET (FP) PO SCH (09:39)
[2023-04-10] MEDS: DIVALPROEX SODIUM 500 MG TABLET E.C. PO SCH ×2 (09:39→21:30)
[2023-04-10] MEDS: PRENATAL VITAMINS W/ FOLIC ACID TABLET (FP) PO SCH (09:39)
[2023-04-10] MEDS: MELATONIN 5 MG TABLETS PO SCH (21:29)
[2023-04-10] MEDS: THIAMINE HCL 100 MG TABLET (FP) PO SCH (21:30)
[2023-04-11] MEDS: hydrOXYzine PAMOATE 25 MG CAPSULE (FP) PO PRN ×2 (05:57→21:06)
[2023-04-11] MEDS: DIVALPROEX SODIUM 500 MG TABLET E.C. PO SCH ×2 (09:44→21:06)
[2023-04-11] MEDS: PRENATAL VITAMINS W/ FOLIC ACID TABLET (FP) PO SCH (09:44)
[2023-04-11] MEDS: amLODIPine BESYLATE 10 MG TABLET (FP) PO SCH (09:44)
[2023-04-11] MEDS: THIAMINE HCL 100 MG TABLET (FP) PO SCH (21:06)
[2023-04-11] MEDS: MELATONIN 5 MG TABLETS PO SCH (21:06)
[2023-04-12] MEDS: hydrOXYzine PAMOATE 25 MG CAPSULE (FP) PO PRN (06:03)
[2023-04-12] MEDS: PRENATAL VITAMINS W/ FOLIC ACID TABLET (FP) PO SCH (09:25)
[2023-04-12] MEDS: amLODIPine BESYLATE 10 MG TABLET (FP) PO SCH (09:25)
[2023-04-12] MEDS: DIVALPROEX SODIUM 500 MG TABLET E.C. PO SCH ×2 (09:25→21:28)
[2023-04-12] MEDS: MELATONIN 5 MG TABLETS PO SCH (21:28)
[2023-04-12] MEDS: THIAMINE HCL 100 MG TABLET (FP) PO SCH (21:28)
[2023-04-13] MEDS: DIVALPROEX SODIUM 500 MG TABLET E.C. PO SCH ×2 (09:39→21:29)
[2023-04-13] MEDS: PRENATAL VITAMINS W/ FOLIC ACID TABLET (FP) PO SCH (09:40)
[2023-04-13] MEDS: amLODIPine BESYLATE 10 MG TABLET (FP) PO SCH (09:40)
[2023-04-13] MEDS: MELATONIN 5 MG TABLETS PO SCH (21:30)
[2023-04-13] MEDS: THIAMINE HCL 100 MG TABLET (FP) PO SCH (21:30)
[2023-04-14] MEDS: hydrOXYzine PAMOATE 25 MG CAPSULE (FP) PO PRN ×2 (06:01→21:02)
[2023-04-14] MEDS: amLODIPine BESYLATE 10 MG TABLET (FP) PO SCH (09:54)
[2023-04-14] MEDS: PRENATAL VITAMINS W/ FOLIC ACID TABLET (FP) PO SCH (09:54)
[2023-04-14] MEDS: DIVALPROEX SODIUM 500 MG TABLET E.C. PO SCH ×2 (09:54→21:02)
[2023-04-14] MEDS: THIAMINE HCL 100 MG TABLET (FP) PO SCH (21:02)
[2023-04-14] MEDS: MELATONIN 5 MG TABLETS PO SCH (21:02)
[2023-04-15] MEDS: COLLOIDAL OATMEAL 1 BAR EACH TP PRN (06:44)
[2023-04-15 06:53] VITALS: RESP 18
[2023-04-15] MEDS: PRENATAL VITAMINS W/ FOLIC ACID TABLET (FP) PO SCH (09:59)
[2023-04-15] MEDS: amLODIPine BESYLATE 10 MG TABLET (FP) PO SCH (09:59)
[2023-04-15] MEDS: DIVALPROEX SODIUM 500 MG TABLET E.C. PO SCH ×2 (09:59→21:20)
[2023-04-15] MEDS: MELATONIN 5 MG TABLETS PO SCH (21:19)
[2023-04-15] MEDS: THIAMINE HCL 100 MG TABLET (FP) PO SCH (21:19)
[2023-04-16] MEDS: DIVALPROEX SODIUM 500 MG TABLET E.C. PO SCH ×2 (10:28→21:06)
[2023-04-16] MEDS: amLODIPine BESYLATE 10 MG TABLET (FP) PO SCH (10:28)
[2023-04-16] MEDS: PRENATAL VITAMINS W/ FOLIC ACID TABLET (FP) PO SCH (10:28)
[2023-04-16] MEDS: THIAMINE HCL 100 MG TABLET (FP) PO SCH (21:06)
[2023-04-16] MEDS: MELATONIN 5 MG TABLETS PO SCH (21:06)
[2023-04-17] MEDS: hydrOXYzine PAMOATE 25 MG CAPSULE (FP) PO PRN (05:59)
[2023-04-17 07:53] VITALS: TEMP 97.1
[2023-04-17 08:56] VITALS: BP 113/84; PULSE 90
[2023-04-17] MEDS: PRENATAL VITAMINS W/ FOLIC ACID TABLET (FP) PO SCH (09:10)
[2023-04-17] MEDS: amLODIPine BESYLATE 10 MG TABLET (FP) PO SCH (09:10)
[2023-04-17] MEDS: DIVALPROEX SODIUM 500 MG TABLET E.C. PO SCH (09:10)
== END 2023-04-17 09:26 | disposition home or self-care (01) | DRG 895 ==
LOC: YASAS 12:31 → Y3W 12:33
PROVIDERS: ADMIT Allergy & Immunology; ATTEND Psychiatry & Neurology Pain Medicine
PROC: HZ42ZZZ Group Counseling for Substance Abuse Treatment, Cognitive-Behavioral (ICD-10-PCS; principal; 2023-04-04)
DX: F10.20 Alcohol dependence, uncomplicated (principal); F14.20 Cocaine dependence, uncomplicated; F19.282 Other psychoactive substance dependence with psychoactive substance-induced sleep disorder; F17.210 Nicotine dependence, cigarettes, uncomplicated; F19.24 Other psychoactive substance dependence with psychoactive substance-induced mood disorder; F31.9 Bipolar disorder, unspecified; F41.9 Anxiety disorder, unspecified; I10 Essential (primary) hypertension; J45.909 Unspecified asthma, uncomplicated; M54.50 Low back pain, unspecified; G89.29 Other chronic pain
CPT/HCPCS: 36415; 80164; 82140; 86803

== ENCOUNTER 2023-12-02 15:17 | Inpatient (IN) | payer OTHER ==
[2023-12-02 15:44] VITALS: BMI 31.4
[2023-12-02] MEDS ORDERED: BENZOCAINE/MENTHOL (CHLORASEPTIC ) LOZENGE MM PRN (17:03)
[2023-12-02] MEDS ORDERED: METHOCARBAMOL 500 MG TABLET PO PRN (17:03)
[2023-12-02] MEDS ORDERED: BISMUTH SUBSALICYLATE 524 MG/30 ML PO PRN (17:03)
[2023-12-02] MEDS ORDERED: ONDANSETRON *ODT* 4 MG TABLET SL PRN (17:03)
[2023-12-02] MEDS ORDERED: BENZONATATE 200 MG CAPSULE PO PRN (17:03)
[2023-12-02] MEDS ORDERED: NALOXONE HCL (KLOXXADO) 8 MG SPRAY NS PRN (17:03)
[2023-12-02] MEDS ORDERED: IBUPROFEN 400 MG TABLET (FP) PO PRN (17:03)
[2023-12-02] MEDS ORDERED: guaiFENesin 600 MG TABLET.ER (FP) PO PRN (17:03)
[2023-12-02] MEDS ORDERED: MAG HYDROX/AL HYDROX/SIMETH 30 ML UNIT-DOSE CUP PO PRN (17:03)
[2023-12-02] MEDS ORDERED: DICYCLOMINE HCL 10 MG CAPSULE PO PRN (17:03)
[2023-12-02] MEDS ORDERED: MAGNESIUM HYDROX 2400MG/30ML ORAL SUSPENSION 30 ML CUP PO PRN (17:03)
[2023-12-02] MEDS ORDERED: NALOXONE HCL 0.4 MG/ML VIAL IM PRN (17:03)
[2023-12-02] MEDS ORDERED: hydrOXYzine PAMOATE 25 MG CAPSULE (FP) PO PRN (17:03)
[2023-12-02] MEDS ORDERED: LOPERAMIDE HCL 2 MG CAPSULE PO PRN (17:03)
[2023-12-02] MEDS ORDERED: ACETAMINOPHEN 325 MG TABLET (FP) PO PRN (17:03)
[2023-12-02] MEDS ORDERED: POLYETHYLENE GLYCOL (HEALTHYLAX) 3350 17 GM PACKET PO PRN (17:03)
[2023-12-02] MEDS ORDERED: IBUPROFEN 600 MG TABLET (FP) PO PRN (17:03)
[2023-12-02] MEDS: THIAMINE HCL 100 MG TABLET (FP) PO SCH (22:20)
[2023-12-02] MEDS: MELATONIN 5 MG TABLETS PO SCH (22:20)
[2023-12-02] MEDS: MINERAL OIL/PET HY-PHL TOPICAL OINTMENT 454 GM JAR TP SCH (22:44)
[2023-12-03 09:46] VITALS: BP 134/88; PULSE 73; RESP 20; TEMP 97.1
[2023-12-03] MEDS: PRENATAL VITAMINS W/ FOLIC ACID TABLET (FP) PO SCH (09:56)
[2023-12-03 11:15] LABS: HEMOGLOBIN 13.5 GM/dL (11.7-16.9); MCH 30.9 pg (25.7-33.7); MCHC 32.9 g/dl (32.0-35.9); MEAN CELL VOLUME 93.8 fl (80-96); MEAN PLT VOLUME 9.6 fl (7.5-11.1); PLATELET COUNT 274 10^3/uL (134-434); RBC 4.37 M/mm3 (4.00-5.60); RDW 14.9 % (11.9-15.9); WHITE BLOOD COUNT 5.4 K/mm3 (4.0-10.0)
[2023-12-03 11:26] LABS: CHLORIDE 109 mmol/L (98-107); SODIUM 142 mmol/L (136-145)
[2023-12-03 11:28] LABS: CALCIUM 8.5 mg/dL (8.5-10.1)
[2023-12-03 11:29] LABS: ALBUMIN 3.1 g/dl (3.4-5.0); ANION GAP 4 mmol/L (4-13); CO2 29 mmol/L (21-32); GLUCOSE,RANDOM 86 mg/dL (74-106)
[2023-12-03 11:32] LABS: SGOT/AST 21 U/L (15-37); SGPT/ALT 26 U/L (13-61)
[2023-12-03 11:33] LABS: BILIRUBIN,TOTAL 0.2 mg/dL (0.2-1)
[2023-12-03 11:34] LABS: TOT PROT 6.4 g/dl (6.4-8.2)
[2023-12-03 11:35] LABS: ALK PHOS 74 U/L (45-117)
[2023-12-03] MEDS ORDERED: DIVALPROEX SODIUM 500 MG TABLET E.C. PO SCH (22:00)
== END 2023-12-03 11:53 | disposition other institution (70) | DRG 897 ==
LOC: YASAS 15:17 → Y3N 17:34
PROVIDERS: ADMIT Allergy & Immunology; ATTEND Surgery
PROC: HZ2ZZZZ Detoxification Services for Substance Abuse Treatment (ICD-10-PCS; principal; 2023-12-02)
DX: F10.20 Alcohol dependence, uncomplicated (principal); F14.20 Cocaine dependence, uncomplicated; F12.20 Cannabis dependence, uncomplicated; F17.210 Nicotine dependence, cigarettes, uncomplicated; F19.24 Other psychoactive substance dependence with psychoactive substance-induced mood disorder; I10 Essential (primary) hypertension; Z86.11 Personal history of tuberculosis; Z62.810 Personal history of physical and sexual abuse in childhood
CPT/HCPCS: 36415; 80053; 80164; 80307; 85027; 86780; 87811; 93005; 93010

== ENCOUNTER 2023-12-03 11:59 | Inpatient (IN) | payer OTHER ==
[2023-12-03] MEDS ORDERED: BENZOCAINE/MENTHOL (CHLORASEPTIC ) LOZENGE MM PRN (14:10)
[2023-12-03] MEDS ORDERED: NICOTINE POLACRILEX 4 MG LOZENGE BC PRN (14:10)
[2023-12-03] MEDS ORDERED: NICOTINE 14 MG/24 HOURS TOPICAL PATCH TD PRN (14:10)
[2023-12-03] MEDS ORDERED: ACETAMINOPHEN 325 MG TABLET (FP) PO PRN (14:10)
[2023-12-03] MEDS ORDERED: METHOCARBAMOL 500 MG TABLET PO PRN (14:10)
[2023-12-03] MEDS ORDERED: LOPERAMIDE HCL 2 MG CAPSULE PO PRN (14:10)
[2023-12-03] MEDS ORDERED: POLYETHYLENE GLYCOL (HEALTHYLAX) 3350 17 GM PACKET PO PRN (14:10)
[2023-12-03] MEDS ORDERED: AMMONIUM LACTATE 12% LOTION 225 GM BOTTLE TP PRN (14:10)
[2023-12-03] MEDS ORDERED: NICOTINE POLACRILEX 4 MG GUM BUC PRN (14:10)
[2023-12-03] MEDS ORDERED: BENZONATATE 200 MG CAPSULE PO PRN (14:10)
[2023-12-03] MEDS ORDERED: NALOXONE (NYS OPIOID OVERDOSE PROGRAM) 4 MG/0.1 ML SPRAY NS PRN (14:10)
[2023-12-03] MEDS ORDERED: guaiFENesin 600 MG TABLET.ER (FP) PO PRN (14:10)
[2023-12-03] MEDS ORDERED: hydrOXYzine PAMOATE 25 MG CAPSULE (FP) PO PRN (14:10)
[2023-12-03] MEDS ORDERED: MAGNESIUM HYDROX 2400MG/30ML ORAL SUSPENSION 30 ML CUP PO PRN (14:10)
[2023-12-03] MEDS ORDERED: NALOXONE HCL 0.4 MG/ML VIAL IVPUSH PRN (14:10)
[2023-12-03] MEDS ORDERED: ALBUTEROL SO4 HFA INHALER IH PRN (14:12)
[2023-12-03] MEDS: DIVALPROEX SODIUM 500 MG TABLET E.C. PO SCH (21:13)
[2023-12-03] MEDS: MELATONIN 5 MG TABLETS PO SCH (21:13)
[2023-12-03] MEDS: THIAMINE 100 MG TABLET PO SCH (21:13)
[2023-12-04] MEDS: IBUPROFEN 600 MG TABLET (FP) PO PRN (03:20)
[2023-12-04] MEDS: MAG HYDROX/AL HYDROX/SIMETH 30 ML UNIT-DOSE CUP PO PRN (03:21)
[2023-12-04] MEDS: PRENATAL VITAMINS W/ FOLIC ACID TABLET (FP) PO SCH (09:51)
[2023-12-07] MEDS: IBUPROFEN 400 MG TABLET (FP) PO PRN (21:29)
[2023-12-11] MEDS: BACLOFEN 10 MG TABLET (FP) PO SCH (17:15)
[2023-12-11] MEDS: amLODIPine BESYLATE 5 MG TABLET (FP) PO SCH (17:15)
[2023-12-22 06:47] VITALS: RESP 18; TEMP 97.3
[2023-12-22 09:04] VITALS: BP 113/79; PULSE 81
== END 2023-12-22 10:20 | disposition home or self-care (01) | DRG 895 ==
LOC: YASAS 11:59 → Y3W 12:01
PROVIDERS: ADMIT Allergy & Immunology; ATTEND Psychiatry & Neurology Pain Medicine
PROC: HZ42ZZZ Group Counseling for Substance Abuse Treatment, Cognitive-Behavioral (ICD-10-PCS; principal; 2023-12-03)
DX: F10.20 Alcohol dependence, uncomplicated (principal); F14.20 Cocaine dependence, uncomplicated; F19.282 Other psychoactive substance dependence with psychoactive substance-induced sleep disorder; F17.210 Nicotine dependence, cigarettes, uncomplicated; F31.9 Bipolar disorder, unspecified; F19.24 Other psychoactive substance dependence with psychoactive substance-induced mood disorder; F41.9 Anxiety disorder, unspecified; I10 Essential (primary) hypertension; H91.92 Unspecified hearing loss, left ear; Z87.09 Personal history of other diseases of the respiratory system; Z86.11 Personal history of tuberculosis
CPT/HCPCS: 82140; J0475

== ENCOUNTER 2024-05-28 12:31 | Inpatient (IN) | payer OTHER ==
[2024-05-28 12:54] VITALS: BMI 28.7
[2024-05-28] MEDS ORDERED: MAG HYDROX/AL HYDROX/SIMETH 30 ML UNIT-DOSE CUP PO PRN (14:20)
[2024-05-28] MEDS ORDERED: IBUPROFEN 600 MG TABLET (FP) PO PRN (14:20)
[2024-05-28] MEDS ORDERED: NALOXONE (NARCAN) HCL 4 MG/0.1 ML SPRAY NS PRN (14:20)
[2024-05-28] MEDS ORDERED: MAGNESIUM HYDROX 2400MG/30ML ORAL SUSPENSION 30 ML CUP PO PRN (14:20)
[2024-05-28] MEDS ORDERED: BISMUTH SUBSALICYLATE 524 MG/30 ML PO PRN (14:20)
[2024-05-28] MEDS ORDERED: IBUPROFEN 400 MG TABLET (FP) PO PRN (14:20)
[2024-05-28] MEDS ORDERED: LOPERAMIDE HCL 2 MG CAPSULE PO PRN (14:20)
[2024-05-28] MEDS ORDERED: POLYETHYLENE GLYCOL (HEALTHYLAX) 3350 17 GM PACKET PO PRN (14:20)
[2024-05-28] MEDS ORDERED: BENZOCAINE/MENTHOL (CHLORASEPTIC ) LOZENGE MM PRN (14:20)
[2024-05-28] MEDS ORDERED: BENZONATATE 200 MG CAPSULE PO PRN (14:20)
[2024-05-28] MEDS ORDERED: ONDANSETRON *ODT* 4 MG TABLET SL PRN (14:20)
[2024-05-28] MEDS ORDERED: DICYCLOMINE HCL 10 MG CAPSULE PO PRN (14:20)
[2024-05-28] MEDS ORDERED: chlordiazePOXIDE HCL 25 MG CAPSULE PO PRN (14:20)
[2024-05-28] MEDS ORDERED: guaiFENesin 600 MG TABLET.ER (FP) PO PRN (14:20)
[2024-05-28] MEDS ORDERED: NICOTINE POLACRILEX 2 MG LOZENGE BC PRN (14:20)
[2024-05-28] MEDS ORDERED: COLLOIDAL OATMEAL 1 BAR EACH TP PRN (14:23)
[2024-05-28] MEDS ORDERED: AMMONIUM LACTATE 12% LOTION 225 GM BOTTLE TP PRN (14:24)
[2024-05-28] MEDS: NALOXONE (NYS OPIOID OVERDOSE PROGRAM) 4 MG/0.1 ML SPRAY NS ONE (14:42)
[2024-05-28] MEDS ORDERED: amLODIPine BESYLATE 5 MG TABLET (FP) ONE (15:01)
[2024-05-28] MEDS: amLODIPine BESYLATE 10 MG TABLET (FP) PO SCH (15:04)
[2024-05-28] MEDS: chlordiazePOXIDE HCL 25 MG CAPSULE PO SCH (16:59)
[2024-05-28] MEDS: MELATONIN 5 MG TABLETS PO SCH (22:11)
[2024-05-28] MEDS: THIAMINE 100 MG TABLET PO SCH (22:11)
[2024-05-28] MEDS: ATORVASTATIN CA 10 MG TABLET (FP) PO SCH (22:12)
[2024-05-28] MEDS: METHOCARBAMOL 500 MG TABLET PO PRN (22:13)
[2024-05-29 10:22] LABS: HEMATOCRIT 42.7 % (35.4-49); HEMOGLOBIN 13.7 GM/dL (11.7-16.9); MCH 30.1 pg (25.7-33.7); MCHC 32.2 g/dl (32.0-35.9); MEAN CELL VOLUME 93.6 fl (80-96); MEAN PLT VOLUME 10.1 fl (7.5-11.1); PLATELET COUNT 263 10^3/uL (134-434); RBC 4.56 M/mm3 (4.00-5.60); RDW 15.3 % (11.9-15.9); WHITE BLOOD COUNT 4.2 K/mm3 (4.0-10.0)
[2024-05-29] MEDS: PRENATAL VITAMINS W/ FOLIC ACID TABLET (FP) PO SCH (10:52)
[2024-05-29] MEDS: TAMSULOSIN HCL 0.4 MG CAP PO SCH (10:53)
[2024-05-29 11:28] LABS: CHLORIDE 106 mmol/L (98-107); POTASSIUM 4.4 mmol/L (3.5-5.1); SODIUM 141 mmol/L (136-145)
[2024-05-29 11:38] LABS: ALBUMIN 3.3 g/dl (3.4-5.0); ANION GAP 5 mmol/L (4-13); BLOOD UREA NITROGEN 16.2 mg/dL (7-18); CALCIUM 8.7 mg/dL (8.5-10.1); CO2 29 mmol/L (21-32); GLUCOSE,RANDOM 79 mg/dL (74-106)
[2024-05-29 11:41] LABS: CREATININE 1.2 mg/dL (0.55-1.3); SGOT/AST 28 U/L (15-37); SGPT/ALT 21 U/L (13-61)
[2024-05-29 11:42] LABS: BILIRUBIN,TOTAL 0.8 mg/dL (0.2-1); TOT PROT 6.7 g/dl (6.4-8.2)
[2024-05-29 11:44] LABS: ALK PHOS 82 U/L (45-117)
[2024-05-29] MEDS: DIVALPROEX SODIUM 500 MG TABLET E.C. PO SCH (22:08)
[2024-05-30] MEDS: chlordiazePOXIDE HCL 25 MG CAPSULE PO SCH (04:32)
[2024-05-30] MEDS: ACETAMINOPHEN 325 MG TABLET (FP) PO PRN (04:36)
[2024-05-30] MEDS ORDERED: NALOXONE (NYS OPIOID OVERDOSE PROGRAM) 4 MG/0.1 ML SPRAY NS PRN (14:03)
[2024-05-31] MEDS ORDERED: chlordiazePOXIDE HCL 10 MG CAPSULE PO PRN
[2024-05-31] MEDS: chlordiazePOXIDE HCL 10 MG CAPSULE PO SCH (05:28)
[2024-06-01] MEDS: chlordiazePOXIDE HCL 10 MG CAPSULE PO SCH (05:51)
[2024-06-02] MEDS: chlordiazePOXIDE HCL 10 MG CAPSULE PO ONE (06:05)
[2024-06-02 06:23] VITALS: TEMP 97.6
[2024-06-02 09:32] VITALS: BP 130/91; PULSE 73; RESP 18
== END 2024-06-02 10:52 | disposition other institution (70) | DRG 897 ==
LOC: YASAS 12:31 → Y3N 14:36
PROVIDERS: ADMIT Surgery; ATTEND Surgery
PROC: HZ2ZZZZ Detoxification Services for Substance Abuse Treatment (ICD-10-PCS; principal; 2024-05-28)
DX: F10.230 Alcohol dependence with withdrawal, uncomplicated (principal); F14.20 Cocaine dependence, uncomplicated; F12.20 Cannabis dependence, uncomplicated; F17.210 Nicotine dependence, cigarettes, uncomplicated; F31.9 Bipolar disorder, unspecified; E78.5 Hyperlipidemia, unspecified; I10 Essential (primary) hypertension; J45.909 Unspecified asthma, uncomplicated; N40.0 Benign prostatic hyperplasia without lower urinary tract symptoms; Z86.11 Personal history of tuberculosis; Z62.810 Personal history of physical and sexual abuse in childhood
CPT/HCPCS: 36415; 71046-TC-FY; 80053; 80305; 80307; 85027; 86780; 87811; 93005; 93010

== ENCOUNTER 2024-06-02 11:00 | Inpatient (IN) | payer OTHER ==
[2024-06-02] MEDS ORDERED: LOPERAMIDE HCL 2 MG CAPSULE PO PRN (11:40)
[2024-06-02] MEDS ORDERED: MAGNESIUM HYDROX 2400MG/30ML ORAL SUSPENSION 30 ML CUP PO PRN (11:40)
[2024-06-02] MEDS ORDERED: BENZONATATE 200 MG CAPSULE PO PRN (11:40)
[2024-06-02] MEDS ORDERED: POLYETHYLENE GLYCOL (HEALTHYLAX) 3350 17 GM PACKET PO PRN (11:40)
[2024-06-02] MEDS ORDERED: NALOXONE (NARCAN) HCL 4 MG/0.1 ML SPRAY NS PRN (11:40)
[2024-06-02] MEDS ORDERED: NICOTINE POLACRILEX 4 MG GUM BUC PRN (11:40)
[2024-06-02] MEDS ORDERED: BENZOCAINE/MENTHOL (CHLORASEPTIC ) LOZENGE MM PRN (11:40)
[2024-06-02] MEDS ORDERED: NALOXONE HCL 0.4 MG/ML VIAL IVPUSH PRN (11:40)
[2024-06-02] MEDS ORDERED: NICOTINE POLACRILEX 4 MG LOZENGE BC PRN (11:40)
[2024-06-02] MEDS ORDERED: MAG HYDROX/AL HYDROX/SIMETH 30 ML UNIT-DOSE CUP PO PRN (11:40)
[2024-06-02] MEDS ORDERED: IBUPROFEN 600 MG TABLET (FP) PO PRN (11:40)
[2024-06-02] MEDS ORDERED: guaiFENesin 600 MG TABLET.ER (FP) PO PRN (11:40)
[2024-06-02] MEDS ORDERED: METHOCARBAMOL 500 MG TABLET PO PRN (11:40)
[2024-06-02] MEDS ORDERED: IBUPROFEN 400 MG TABLET (FP) PO PRN (11:40)
[2024-06-02] MEDS: PRENATAL VITAMINS W/ FOLIC ACID TABLET (FP) PO SCH (12:59)
[2024-06-02] MEDS: MELATONIN 5 MG TABLETS PO SCH (21:11)
[2024-06-02] MEDS: THIAMINE 100 MG TABLET PO SCH (21:11)
[2024-06-03] MEDS: NICOTINE 14 MG/24 HOURS TOPICAL PATCH TD SCH (10:50)
[2024-06-03] MEDS: PNEUMOC 20-VAL CONJ-DIP CRM/PF 0.5 ML SYRINGE IM ONE (12:40)
[2024-06-03 17:56] LABS: INR 0.93 (0.83-1.09); PROTHROMBIN TIME (PATIENT) 10.5 SEC (9.7-13.0)
[2024-06-03 21:05] LABS: HIV INTERPRETATION NEGATIVE (NEGATIVE)
[2024-06-04] MEDS: ACETAMINOPHEN 325 MG TABLET (FP) PO PRN (01:48)
[2024-06-04] MEDS: hydrOXYzine PAMOATE 25 MG CAPSULE (FP) PO PRN (21:12)
[2024-06-07 06:41] VITALS: RESP 18
[2024-06-08 06:34] VITALS: BP 149/95; PULSE 61; TEMP 97.3
[2024-06-08] MEDS ORDERED: amLODIPine BESYLATE 10 MG TABLET (FP) PO SCH (10:00)
[2024-06-08] MEDS ORDERED: TAMSULOSIN HCL 0.4 MG CAP PO SCH (10:00)
[2024-06-08] MEDS ORDERED: DIVALPROEX SODIUM 500 MG TABLET E.C. PO SCH (22:00)
[2024-06-08] MEDS ORDERED: ATORVASTATIN CA 10 MG TABLET (FP) PO SCH (22:00)
== END 2024-06-08 09:10 | disposition home or self-care (01) | DRG 895 ==
LOC: YASAS 11:00 → Y3E 11:03
PROVIDERS: ADMIT Psychiatry & Neurology Pain Medicine; ATTEND Psychiatry & Neurology Pain Medicine
PROC: HZ42ZZZ Group Counseling for Substance Abuse Treatment, Cognitive-Behavioral (ICD-10-PCS; principal; 2024-06-02)
DX: F10.20 Alcohol dependence, uncomplicated (principal); F14.20 Cocaine dependence, uncomplicated; F19.282 Other psychoactive substance dependence with psychoactive substance-induced sleep disorder; F12.20 Cannabis dependence, uncomplicated; F17.210 Nicotine dependence, cigarettes, uncomplicated; F31.9 Bipolar disorder, unspecified; F19.24 Other psychoactive substance dependence with psychoactive substance-induced mood disorder; F41.9 Anxiety disorder, unspecified; E78.5 Hyperlipidemia, unspecified; I10 Essential (primary) hypertension; N40.1 Benign prostatic hyperplasia with lower urinary tract symptoms; R35.1 Nocturia; Z86.11 Personal history of tuberculosis
CPT/HCPCS: 36415; 82140; 82652; 82962; 83735; 85610; 86803; 87389; 90677; G0009

== ENCOUNTER 2025-05-02 12:54 | Inpatient (IN) | payer OTHER ==
[2025-05-02] MEDS ORDERED: NICOTINE 14 MG/24 HOURS TOPICAL PATCH TD PRN (13:44)
[2025-05-02] MEDS ORDERED: IBUPROFEN 400 MG TABLET (FP) PO PRN (13:44)
[2025-05-02] MEDS ORDERED: MAGNESIUM HYDROX 2400MG/30ML ORAL SUSPENSION 30 ML CUP PO PRN (13:44)
[2025-05-02] MEDS ORDERED: BENZONATATE 200 MG CAPSULE PO PRN (13:44)
[2025-05-02] MEDS ORDERED: IBUPROFEN 600 MG TABLET (FP) PO PRN (13:44)
[2025-05-02] MEDS ORDERED: NICOTINE POLACRILEX 4 MG GUM BUC PRN (13:44)
[2025-05-02] MEDS ORDERED: NALOXONE HCL 0.4 MG/ML VIAL IVPUSH PRN (13:44)
[2025-05-02] MEDS ORDERED: POLYETHYLENE GLYCOL (HEALTHYLAX) 3350 17 GM PACKET PO PRN (13:44)
[2025-05-02] MEDS ORDERED: NICOTINE POLACRILEX 4 MG LOZENGE BC PRN (13:44)
[2025-05-02] MEDS ORDERED: NALOXONE (NARCAN) HCL 4 MG/0.1 ML SPRAY NS PRN (13:44)
[2025-05-02] MEDS ORDERED: BENZOCAINE/MENTHOL (CHLORASEPTIC ) LOZENGE MM PRN (13:44)
[2025-05-02] MEDS ORDERED: LOPERAMIDE HCL 2 MG CAPSULE PO PRN (13:44)
[2025-05-02] MEDS ORDERED: guaiFENesin 600 MG TABLET.ER (FP) PO PRN (13:44)
[2025-05-02] MEDS ORDERED: ACETAMINOPHEN 325 MG TABLET (FP) PO PRN (13:44)
[2025-05-02] MEDS: ATORVASTATIN CA 10 MG TABLET (FP) PO SCH (21:26)
[2025-05-02] MEDS: MELATONIN 5 MG TABLETS PO SCH (21:26)
[2025-05-02] MEDS: THIAMINE 100 MG TABLET PO SCH (21:26)
[2025-05-02 21:47] LABS: HIV INTERPRETATION NEGATIVE (NEGATIVE)
[2025-05-03] MEDS: TAMSULOSIN HCL 0.4 MG CAP PO SCH (07:37)
[2025-05-03] MEDS: amLODIPine BESYLATE 10 MG TABLET (FP) PO SCH (10:41)
[2025-05-03] MEDS: HYDROCHLOROTHIAZIDE 12.5 MG CAPSULE (FP) PO SCH (10:41)
[2025-05-03] MEDS: DIVALPROEX SODIUM 500 MG TABLET E.C. PO SCH (10:41)
[2025-05-03] MEDS: PRENATAL VITAMINS W/ FOLIC ACID TABLET (FP) PO SCH (10:41)
[2025-05-03] MEDS: LACTULOSE 20 GM/30 ML UDC (FOR ORAL USE ONLY) PO SCH (21:13)
[2025-05-03] MEDS: METHOCARBAMOL 500 MG TABLET PO PRN (21:14)
[2025-05-04] MEDS: MAG HYDROX/AL HYDROX/SIMETH 30 ML UNIT-DOSE CUP PO PRN (15:19)
[2025-05-08] MEDS: BACLOFEN 10 MG TABLET (FP) PO SCH (14:33)
[2025-05-08] MEDS: LIDOCAINE 5% TOPICAL PATCH TP SCH (14:33)
[2025-05-08] MEDS: LIDOCAINE PATCH REMOVAL MC SCH (21:29)
[2025-05-09 10:44] LABS: GLUCOSE,RANDOM 97.0 mg/dL (74-106); TOT PROT 7.1 g/dl (6.4-8.2)
[2025-05-09 10:45] LABS: CO2 30.0 mmol/L (21-32)
[2025-05-09 10:46] LABS: ALK PHOS 68.0 U/L (40-150)
[2025-05-09] MEDS: TOPIRAMATE 25 MG TABLET PO SCH (10:46)
[2025-05-09 10:49] LABS: CREATININE 1.13 mg/dL (0.55-1.3); SGOT/AST 19.0 U/L (5-34); SGPT/ALT 12.0 U/L (0-55)
[2025-05-09] MEDS ORDERED: ACETAMINOPHEN 325 MG TABLET (FP) PO PRN (15:38)
[2025-05-21] MEDS: hydrOXYzine PAMOATE 25 MG CAPSULE (FP) PO PRN (05:23)
[2025-05-22] MEDS: DIVALPROEX SODIUM 500 MG TABLET E.C. PO SCH (21:11)
[2025-05-23 11:28] LABS: GLUCOSE,RANDOM 108.0 mg/dL (74-106)
[2025-05-23 11:29] LABS: TOT PROT 7.1 g/dl (6.4-8.2)
[2025-05-23 11:30] LABS: CO2 27.0 mmol/L (21-32)
[2025-05-23 11:31] LABS: ALK PHOS 74.0 U/L (40-150)
[2025-05-23 11:34] LABS: CREATININE 1.35 mg/dL (0.55-1.3); SGOT/AST 20.0 U/L (5-34); SGPT/ALT 16.0 U/L (0-55)
[2025-05-29 06:21] VITALS: TEMP 97.1
[2025-05-29 09:01] VITALS: BP 126/87; PULSE 73; RESP 16
== END 2025-05-29 09:20 | disposition home or self-care (01) | DRG 895 ==
LOC: YASAS 12:54 → Y3W 12:55
PROVIDERS: ADMIT Psychiatry & Neurology Pain Medicine; ATTEND Psychiatry & Neurology Pain Medicine
PROC: HZ42ZZZ Group Counseling for Substance Abuse Treatment, Cognitive-Behavioral (ICD-10-PCS; principal; 2025-05-02)
DX: F10.20 Alcohol dependence, uncomplicated (principal); F14.20 Cocaine dependence, uncomplicated; E72.20 Disorder of urea cycle metabolism, unspecified; F17.210 Nicotine dependence, cigarettes, uncomplicated; G47.00 Insomnia, unspecified; I10 Essential (primary) hypertension; M25.562 Pain in left knee; M54.50 Low back pain, unspecified; G89.29 Other chronic pain; N40.0 Benign prostatic hyperplasia without lower urinary tract symptoms
CPT/HCPCS: 36415; 80053; 82140; 86803; 87389; J0475